=== PATIENT | male | born 1935 | race Caucasian/White ===

== ENCOUNTER 2016-05-23 16:02 | Emergency (ER) | payer MEDICARE, OTHER ==
[~2016-05-23] VITALS: Ht 175.3 cm; Wt 81.6 kg
[2016-05-23 16:16] VITALS: BP 139/71
== END 2016-05-23 17:54 | disposition home or self-care (01) ==
LOC: ER 16:08
DX: R04.0 Epistaxis (principal); I10 Essential (primary) hypertension; I48.91 Unspecified atrial fibrillation
CPT/HCPCS: 99284; A4606; Z7610

== ENCOUNTER 2019-01-18 21:36 | Emergency (ER) | payer MEDICARE, OTHER ==
[~2019-01-18] VITALS: Ht 170.2 cm; Wt 82.6 kg
[2019-01-18 22:10] VITALS: BP 154/83
[2019-01-18] MEDS ORDERED: HYDROCODONE/APAP 5/325MG 1 EACH TABLET PO ONE (22:30)
[2019-01-18] MEDS ORDERED: HYDROCODONE/APAP 5/325MG 1 EACH TABLET ONE (22:56)
--- NOTE | 2019-01-18 23:43 | NUR ---
[place] X RAY BEING READ RIGHT NOW
== END 2019-01-18 23:59 | disposition home or self-care (01) ==
LOC: ER 21:36
DX: S20.212A Contusion of left front wall of thorax, initial encounter (principal); S50.312A Abrasion of left elbow, initial encounter; I10 Essential (primary) hypertension; I48.91 Unspecified atrial fibrillation; W18.30XA Fall on same level, unspecified, initial encounter; Y93.89 Activity, other specified; Y92.89 Other specified places as the place of occurrence of the external cause; Y99.8 Other external cause status
CPT/HCPCS: 71100-TC

== ENCOUNTER 2021-04-14 07:40 | Inpatient (IN) | payer MEDICARE, OTHER ==
[~2021-04-14] VITALS: Ht 175.3 cm; Wt 88.0 kg
--- NOTE | 2021-04-14 07:48 | NUR ---
AAOX3, BIB SON FROM HOME C/O L FOREARM INJURY S/P GLF UNWITNESSED. RESP IS EVEN AND UNLABORED WITH NO APPARENT DISTRESS NOTED. WARM BLANKET PROVIDED FOR COMFORT. DR ROWE AT FOR EVAL.
--- NOTE | 2021-04-14 07:50 | NUR ---
AT BEDSIDE FOR EVAL.
[2021-04-14] MEDS ORDERED: MORPHINE SULFATE INJ 4 MG/ML DISP.SYRIN ONE (07:56)
[2021-04-14] MEDS ORDERED: ONDANSETRON HCL/PF 4 MG/2 ML VIAL ONE (07:56)
[2021-04-14] MEDS ORDERED: MORPHINE SULFATE INJ 2 MG/ML DISP.SYRIN IV ONE (08:00)
[2021-04-14] MEDS ORDERED: ONDANSETRON HCL/PF 4 MG/2 ML VIAL IVP ONE (08:00)
--- NOTE | 2021-04-14 08:00 | NUR ---
IV LINE ESTABLISHED BLOOD DRAWN AND SENT TO LAB.
--- NOTE | 2021-04-14 08:07 | NUR ---
JAYA-DAUGHTER IN LAW [phone].
--- NOTE | 2021-04-14 08:11 | NUR ---
CHIEF MECHANICAL ENGINEER AT BEDSIDE FOR X-RAY.
[2021-04-14 08:19] LABS: BASOPHILS # (AUTO) 0.1 K/uL (0.0-0.2); BASOPHILS % (AUTO) 0.6 % (0.0-2.0); EOSINOPHILS % (AUTO) 2.8 % (0.0-6.0); HEMATOCRIT 38 % (39-51); HEMOGLOBIN 12.5 g/dL (13.5-17.5); LYMPHOCYTES # (AUTO) 2.2 K/uL (0.8-4.8); LYMPHOCYTES % (AUTO) 24.9 % (20.0-44.0); MEAN CORPUSCULAR HGB CONC 33 g/dl (31.0-36.0); MEAN CORPUSCULAR VOLUME 81 fL (80-96); MONOCYTES # (AUTO) 0.8 K/uL (0.1-1.30); NEUTROPHILS # (AUTO) 5.6 K/uL (1.8-8.9); NEUTROPHILS % (AUTO) 62.7 % (43.0-81.0); PLATELET COUNT (AUTO) 268 K/uL (150-450); RED BLOOD CELL COUNT(AUTO) 4.76 MIL/uL (4.5-6.0); WHITE BLOOD COUNT (AUTO) 8.9 K/uL (4.3-11.0)
[2021-04-14 08:23] LABS: CALCIUM, SERUM 8.6 mg/dL (8.5-10.1); CARBON DIOXIDE 30 mmol/L (21-32); CHLORIDE 101 mmol/L (98-107); CREATININE 1.3 mg/dL (0.6-1.3); GLUCOSE 112 mg/dL (74-106); POTASSIUM 3.6 mmol/L (3.5-5.1); SODIUM SERUM 137 mmol/L (136-145); UREA NITROGEN, BLOOD 17 mg/dL (7-18)
[2021-04-14 08:29] LABS: ALANINE AMINOTRANSFERASE 49 U/L (12-78); ALBUMIN 3.7 g/dL (3.4-5.0); ALKALINE PHOSPHATASE 66 U/L (46-116); ASPARTATE AMINOTRANSFERASE 34 U/L (15-37); BILIRUBIN,DIRECT 0.1 mg/dL (0.0-0.2); BILIRUBIN,TOTAL 0.4 mg/dL (0.2-1.0); TOTAL PROTEIN, SERUM 7.3 g/dL (6.4-8.2)
[2021-04-14] MEDS ORDERED: DEXL60CA3 PO (08:30)
[2021-04-14] MEDS ORDERED: ATOR40TA PO (08:30)
[2021-04-14] MEDS ORDERED: AMLO1CAP5 PO (08:30)
[2021-04-14] MEDS ORDERED: RIVA15TA PO (08:30)
[2021-04-14] MEDS ORDERED: MYRBETRIQ PO (08:30)
[2021-04-14] MEDS ORDERED: METO50TA16 PO (08:30)
[2021-04-14] MEDS ORDERED: LEVO75TA99 PO (08:30)
[2021-04-14] MEDS ORDERED: FERR325T23 PO (08:30)
[2021-04-14] MEDS ORDERED: DIAZ10TA4 PO (08:30)
[2021-04-14] MEDS ORDERED: ERGO500093 PO (08:30)
[2021-04-14] MEDS ORDERED: FENO134C PO (08:30)
[2021-04-14] MEDS ORDERED: HYDR12.55 PO (08:30)
[2021-04-14] MEDS ORDERED: AMIO200T5 PO (08:30)
[2021-04-14] MEDS ORDERED: FLUT1BLS15 INH (08:36)
[2021-04-14] MEDS ORDERED: GABA-532 PO (08:36)
[2021-04-14] MEDS ORDERED: IPRA4AER INH (08:36)
--- NOTE | 2021-04-14 08:49 | NUR ---
TEXTED DR. HORNE AWAITING CALL BACK.
--- NOTE | 2021-04-14 08:55 | NUR ---
[facility] called. awaiting call back from line production cook physician.
--- NOTE | 2021-04-14 09:06 | NUR ---
MOVE SHEET SUBMITTED AND CALLED FOR MS BED.
--- NOTE | 2021-04-14 09:25 | NUR ---
BERTHA ROACH AT BEDSIDE FOR EVAL. BERTHA ROACH TALKED TO PT DAUGHTER IN LAW JAYA AND GAVE CONSENT FOR SURGERY. MD LO.
--- NOTE | 2021-04-14 09:48 | NUR ---
COVID ANTIGEN SWAB DONE AND SENT TO THE LAB
--- NOTE | 2021-04-14 10:02 | NUR ---
3INCH VOLAR SPLINT APPLIED BY ARCHITECTURAL RENDERER.
--- NOTE | 2021-04-14 10:02 | NUR ---
CALLED DR. HORNE LEFT MS.
--- NOTE | 2021-04-14 10:50 | NUR ---
AT BEDSIDE FOR EVAL.
--- NOTE | 2021-04-14 11:00 | NUR ---
REPORT GIVEN TO LINOLEUM MECHANIC FOR L WRIST REDUCTION INTERNAL FIXATION SURGERY.
--- NOTE | 2021-04-14 11:05 | NUR ---
MUSIC BOX MECHANIC AT BEDSIDE FOR PT TRANSFER TO OR.
[2021-04-14] MEDS ORDERED: MIDAZOLAM HCL 2 MG/2ML VIAL ONE (11:22)
[2021-04-14] MEDS ORDERED: FENTANYL PF 250MCG/5ML AMPUL ONE (11:22)
[2021-04-14] MEDS ORDERED: FAMOTIDINE/PF INJ 20 MG/2 ML VIAL IV ONE (11:23)
[2021-04-14] MEDS ORDERED: ROCURONIUM BROMIDE 50 MG/5 ML ONE (11:23)
[2021-04-14] MEDS ORDERED: MAG HYDROX/AL HYDROX/SIMETH 30 ML UDC PO PRN (12:00)
[2021-04-14] MEDS ORDERED: Z GUARD REMEDY 2 OZ OINT TP PRN (12:00)
[2021-04-14] MEDS ORDERED: ACETAMINOPHEN 325 MG TABLET PO PRN ×2 (12:00→15:00)
[2021-04-14] MEDS ORDERED: ONDANSETRON HCL/PF 4 MG/2 ML VIAL IVP PRN (12:00)
[2021-04-14] MEDS ORDERED: MORPHINE SULFATE INJ 2 MG/ML DISP.SYRIN IV PRN (12:00)
[2021-04-14] MEDS ORDERED: MAGNESIUM HYDROXIDE 30 ML UDC PO PRN (12:00)
[2021-04-14] MEDS ORDERED: ZOLPIDEM TARTRATE 5 MG TABLET PO PRN (12:00)
[2021-04-14] MEDS ORDERED: SENNOSIDES 8.6 MG TABLET PO PRN (15:00)
[2021-04-14] MEDS ORDERED: HYDROCODONE/APAP 5/325MG TABLET PO PRN (15:00)
[2021-04-14] MEDS ORDERED: DOCUSATE SODIUM 100 MG CAPSULE PO PRN (15:00)
[2021-04-14] MEDS: METOPROLOL TARTRATE 50 MG TABLET PO SCH (16:56)
[2021-04-14] MEDS: GABAPENTIN 300 MG CAPSULE PO SCH (16:56)
--- NOTE | 2021-04-14 17:00 | NUR ---
MS RN NOTES RECEIVED Pt FROM OR NURSE. Pt HAD A L WRIST FIX, ORIF. Pt IS AWAKE AND ORIENTED X 4. NO SOB OR RESPIRATORY DISTRESS NOTED, Pt IS ON ROOM AIR. NO COMPLAINTS OF PAIN MADE. WILL CONTINUE TO MONITOR THROUGHOUT THE SHIFT.
[2021-04-14] MEDS: DIAZEPAM 5 MG TABLET PO SCH ×2 (17:54→17:59)
[2021-04-14] MEDS: ATORVASTATIN 40 MG TABLET PO SCH ×2 (17:54→17:59)
--- NOTE | 2021-04-14 17:59 | NUR ---
MS RN NOTES-MEDS Pt REFUSED TO TAKE DIAZEPAM AND ATORVASTATIN AT THE SCHEDULED TIME.
--- NOTE | 2021-04-14 19:01 | NUR ---
MS RN CLOSING NOTES Pt IS A/OX4. CURRENTLY ON ROOM AIR AND TOLERATING WELL. NO COMPLAINTS OF PAIN AND NO SIGNS AND SYMPTOMS OF DISTRESS NOTED. ALL NEEDS MET AT THIS TIME. IV ACCESS ON RIGHT AC, SL. SAFETY MEASURES IN PLACE: BED IS LOCKED AND IN LOWEST POSITION, SIDE RAILS UP X2, CALL LIGHT AND BEDSIDE TABLE ARE WITHIN REACH. WILL ENDORSE TO ONCOMING SHIFT.
[2021-04-14 20:00] VITALS: BP 141/77
--- NOTE | 2021-04-14 21:58 | NUR ---
MS RN NOTE RECEIVED PATIENT IN BED. A/OX4. NO S/S OF APPARENT DISTRESS. PAIN AT TOLERABLE LEVEL PER PATIENT. PATIENT ABLE TO MAKE NEEDS KNOWN. NO FLUIDS RUNNING AT THIS TIME. SAFETY IN PLACE. NEEDS ATTENDED AT THE MOMENT. WILL CONTINUE WITH PLAN OF CARE FOR PATIENT.
[2021-04-14] MEDS: ANCEF 1 GM/50 ML D5W IV SCH (23:31)
--- NOTE | 2021-04-15 | NUR ---
MS RN NOTE PATIENT REQUESTED FOR SLEEPING MEDICATION. GIVEN AMBIEN 5MG AT THIS TIME.
--- NOTE | 2021-04-15 03:19 | NUR ---
MS RN NOTE REPORT GIVEN TO MODESTA FOR CONTINUITY OF CARE.
[2021-04-15] MEDS: ANCEF 1 GM/50 ML D5W IV SCH ×3 (04:05→19:42)
[2021-04-15 06:42] LABS: BASOPHILS # (AUTO) 0.1 K/uL (0.0-0.2); BASOPHILS % (AUTO) 0.7 % (0.0-2.0); EOSINOPHILS % (AUTO) 0.4 % (0.0-6.0); HEMATOCRIT 37 % (39-51); HEMOGLOBIN 12.2 g/dL (13.5-17.5); LYMPHOCYTES # (AUTO) 0.8 K/uL (0.8-4.8); MEAN CORPUSCULAR HGB CONC 33 g/dl (31.0-36.0); MEAN CORPUSCULAR VOLUME 81 fL (80-96); MONOCYTES % (AUTO) 11.1 % (2.0-12.0); NEUTROPHILS # (AUTO) 7.2 K/uL (1.8-8.9); NEUTROPHILS % (AUTO) 78.8 % (43.0-81.0); PLATELET COUNT (AUTO) 237 K/uL (150-450); RED BLOOD CELL COUNT(AUTO) 4.55 MIL/uL (4.5-6.0); WHITE BLOOD COUNT (AUTO) 9.2 K/uL (4.3-11.0)
[2021-04-15 06:53] LABS: CALCIUM, SERUM 8.8 mg/dL (8.5-10.1); CREATININE 1.1 mg/dL (0.6-1.3); MAGNESIUM 1.9 mg/dL (1.8-2.4); PHOSPHORUS 2.8 mg/dL (2.5-4.9); POTASSIUM 3.8 mmol/L (3.5-5.1)
--- NOTE | 2021-04-15 07:56 | NUR ---
RN OPENING NOTE RECEIVED PATIENT IN BED. A/O X4. ON ROOM AIR, TOLERATING WELL. NO SOB NOTED. IN NO APPARENT DISTRESS. IV ACCESS ON R AC, INTACT AND PATENT. SAFETY MEASURES MAINTAINED. BED IN LOWEST POSITION, BRAKES LOCKED. SIDE RAILS UP X2. CALL LIGHT WITHIN REACH. WILL CONTINUE PLAN OF CARE.
[2021-04-15 08:00] VITALS: BP 154/66
[2021-04-15] MEDS: GABAPENTIN 300 MG CAPSULE PO SCH ×3 (09:08→17:06)
[2021-04-15] MEDS: METOPROLOL TARTRATE 50 MG TABLET PO SCH ×2 (09:08→17:06)
[2021-04-15] MEDS: AMIODARONE HCL 200 MG TABLET PO SCH (09:09)
[2021-04-15] MEDS: FERROUS SULFATE (325 MG) 325 MG/TAB TABLET PO SCH (09:09)
[2021-04-15] MEDS: LEVOTHYROXINE SODIUM 75 MCG TABLET PO SCH (09:12)
[2021-04-15] MEDS: FLUTICASONE/VILANTEROL 1 EACH BLST.W.DEV IH SCH (09:12)
[2021-04-15 16:00] VITALS: BP 163/81
[2021-04-15] MEDS: ATORVASTATIN 40 MG TABLET PO SCH (17:06)
[2021-04-15] MEDS: DIAZEPAM 5 MG TABLET PO SCH (17:06)
--- NOTE | 2021-04-15 18:56 | NUR ---
RN CLOSING NOTE RECEIVED PATIENT IN BED. A/O X2. WITH EPISODES OF CONFUSION. ON ROOM AIR, TOLERATING WELL. NO SOB NOTED. IN NO APPARENT DISTRESS. DUE MEDS GIVEN ORDERED. IV ACCESS ON R AC, INTACT AND PATENT. SAFETY MEASURES MAINTAINED. BED IN LOWEST POSITION, BRAKES LOCKED. SIDE RAILS UP X2. KEPT CALL LIGHT WITHIN REACH. WILL ENDORSE CONTINUITY OF CARE TO INCOMING SHIFT. .
--- NOTE | 2021-04-15 19:30 | NUR ---
Patient is A&Ox2-3. Mild confusion about situation. All safety measures in place. L wrist jason wrap in place- Good perfusion to extremity, cap refill <3 seconds. Bed alarm on. No signs of distress. Patient denies pain. Will continue to monitor.
[2021-04-15 20:00] VITALS: BP 173/80
--- NOTE | 2021-04-15 20:15 | NUR ---
RAC #18G leaking. Inserted new R wrist #22G.
[2021-04-15] MEDS ORDERED: CLONIDINE HCL 0.1 MG TABLET PO PRN (21:30)
--- NOTE | 2021-04-15 21:31 | NUR ---
Patient's B/P 173/80, HR 75. On-call provider contacted with new order for clonidine 0.1mg PO PRN q6H SBP >160.
[2021-04-15] MEDS ORDERED: ENOXAPARIN SODIUM 40 MG/0.4 ML DISP.SYRIN SQ SCH (22:00)
[2021-04-16 00:16] VITALS: BP 161/87
[2021-04-16 03:37] VITALS: BP 159/76
[2021-04-16] MEDS: ANCEF 1 GM/50 ML D5W IV SCH ×2 (03:41→11:55)
--- NOTE | 2021-04-16 06:30 | NUR ---
Patient noted to have increased confusion. Noted incontinence overnight. Called son Earnestine... son says he talked to pt. on the phone and he is more confused and this is not his baseline. Son also stated pt. never has incontinence issues. New order from provider on-call CT head and UA.
--- NOTE | 2021-04-16 07:00 | NUR ---
Patient wheeled down to CT
--- NOTE | 2021-04-16 07:10 | NUR ---
CT scan completed
--- NOTE | 2021-04-16 07:32 | NUR ---
Patient A&Ox2. VSS.
--- NOTE | 2021-04-16 07:35 | NUR ---
RN NOTES RECEIVED PATIENT IN BED RESTING, AWAKE AND VERBALLY RESPONSIVE. A/O X2-3, ABLE TO MAKE NEEDS KNOWN. NOT IN ACUTE DISTRESS. BREATHING EVEN AND UNLABORED. IV LINE INTACT AND PATENT. SAFETY MEASURES IN PLACE. WILL CONTINUE TO MONITOR.
--- NOTE | 2021-04-16 07:52 | NUR ---
RN NOTES URINE SPECIMEN COLLECTED AND PLACED IN THE REFRIGERATOR FOR PICKUP.
[2021-04-16] MEDS ORDERED: ACET-907 PO (08:11)
[2021-04-16] MEDS ORDERED: Hydrocodone/Apap 5/325MG PO (08:11)
[2021-04-16 08:18] VITALS: BP 179/89
[2021-04-16] MEDS: LEVOTHYROXINE SODIUM 75 MCG TABLET PO SCH (08:51)
[2021-04-16] MEDS: GABAPENTIN 300 MG CAPSULE PO SCH ×3 (08:52→16:26)
[2021-04-16] MEDS: FLUTICASONE/VILANTEROL 1 EACH BLST.W.DEV IH SCH (08:52)
[2021-04-16] MEDS: METOPROLOL TARTRATE 50 MG TABLET PO SCH ×2 (08:52→16:26)
[2021-04-16] MEDS: FERROUS SULFATE (325 MG) 325 MG/TAB TABLET PO SCH (08:52)
[2021-04-16] MEDS: AMIODARONE HCL 200 MG TABLET PO SCH (08:52)
[2021-04-16 13:01] LABS: BILIRUBIN,URINE NEGATIVE (NEGATIVE); COLOR,URINE YELLOW (YELLOW); LEUKOCYTE ESTERASE ,URINE NEGATIVE (NEGATIVE); NITRITE, URINE NEGATIVE (NEGATIVE); PROTEIN,URINE NEGATIVE (NEGATIVE); UGLUCOSE NEGATIVE (NEGATIVE); UROBILINOGEN,URINE 0.2 EU/dL (0.2)
--- NOTE | 2021-04-16 13:30 | NUR ---
RN NOTES PATIENT SEEN BY PT FOR EVAL AND TX, RECOMMENDED SNF. CHARGE NURSE MADE AWARE AND WILL INFORM CASE MANAGEMENT FOR PLACEMENT.
[2021-04-16 16:30] VITALS: BP 133/69
[2021-04-16] MEDS: DIAZEPAM 5 MG TABLET PO SCH (17:02)
[2021-04-16] MEDS: ATORVASTATIN 40 MG TABLET PO SCH (17:02)
--- NOTE | 2021-04-16 17:34 | NUR ---
RN NOTES SPOKE W/ ALAINA ROCK; PER CM, PATIENT TO BE D/C HOME AND WILL BE PICKED UP BY FAMILY IN AN HOUR. CHARGE NURSE MADE AWARE.
--- NOTE | 2021-04-16 19:15 | NUR ---
RN NOTES SPOKE W/ SON TODD. 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 ENDORSED TO PI/SENIOR RESEARCH ASSOCIATE RN SANDER. DISCHARGE INSTRUCTION AND EDUCATION PROVIDED TO SON. PATIENT UNABLE TO SIGN FORMS; FORM SIGNED BY ME AND COSIGNED BY ANOTHER RN SHANNON. IV LINE REMOVED; NO SKIN ISSUE NOTED. STEPHAN WRAP ON LEFT WRIST INTACT. SAFETY MEASURES MAINTAINED. PATIENT CURRENTLY RESTING IN BED W/ EYES CLOSED, ABLE TO BE AWAKENED. NO ACUTE DISTRESS NOTED.
--- NOTE | 2021-04-16 19:30 | NUR ---
CONTINUITY OF CARE Patient in bed, sleeping, arouses easily. Patient is to be discharged, awaiting family for pickler helper.
--- NOTE | 2021-04-16 20:51 | NUR ---
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 Patient remains stable upon dc. No IV peripheral line. Left forearm with STEPHAN wrap in place. All personal belongings send with the patient. Assisted patient x2 person to car seat without injury. Discharged packet given to patient's son.
== END 2021-04-16 20:30 | disposition home health service (06) | DRG 512 ==
LOC: ER 07:43 → MED 15:14
PROVIDERS: ADMIT Internal Medicine; ATTEND Internal Medicine
PROC: 0PSJ04Z Reposition Left Radius with Internal Fixation Device, Open Approach (ICD-10-PCS; principal; 2021-04-14)
DX: S52.592A Other fractures of lower end of left radius, initial encounter for closed fracture (principal); Y92.009 Unspecified place in unspecified non-institutional (private) residence as the place of occurrence of the external cause; I10 Essential (primary) hypertension; I48.91 Unspecified atrial fibrillation; W18.30XA Fall on same level, unspecified, initial encounter; E78.5 Hyperlipidemia, unspecified; Z79.51 Long term (current) use of inhaled steroids; Z79.899 Other long term (current) drug therapy; Z79.01 Long term (current) use of anticoagulants; G62.9 Polyneuropathy, unspecified; E03.9 Hypothyroidism, unspecified; E61.1 Iron deficiency
CPT/HCPCS: 36415; 70450-TC; 71045-TC; 73100-TC; 73110; 80048-TC; 80076-TC; 83735-TC; 84100-TC; 84484-TC; 85025-TC; 85730-TC; 86850-TC; 87081-TC; 97116-TC; 97530-TC; A4565; A6253; A6402; C1713; C9803; G0378; J0690; J2250; J2270; J2405; J2704; J2765; J3010; J3490; J7030; J7050; J7060